=== PATIENT | female | born 1990 | race Two or more races ===

== ENCOUNTER 2018-03-18 10:43 | Inpatient (IN) | payer OTHER ==
[2018-03-18 11:59] VITALS: BMI 37.5
[2018-03-18] MEDS ORDERED: AMPICILLIN - 2 GM in SODIUM CHLORIDE 100 ML IVPB ONE (12:00)
[2018-03-18] MEDS ORDERED: AMPICILLIN SODIUM 2 GM VIAL ONE (12:04)
[2018-03-18] MEDS ORDERED: CITRIC ACID/SODIUM CITRATE 30 ML UNIT-DOSE CUP PO ONE (12:15)
[2018-03-18] MEDS ORDERED: ELECTROLYTE-148 SOLN 1,000 ML IV ONE (12:15)
[2018-03-18 12:16] LABS: BASO % 0.3 % (0-2.0); EOS % 2.9 % (0-4.5); HEMOGLOBIN 10.8 GM/dL (10.7-15.3); LYMPH % 11.2 % (8-40); MCH 28.4 pg (25.7-33.7); MCHC 34.8 g/dl (32.0-36.0); MEAN CELL VOLUME 81.4 fl (80-96); MEAN PLT VOLUME 8.6 fl (7.5-11.1); MONO % 5.6 % (3.8-10.2); PLATELET COUNT 275 K/MM3 (134-434); RBC 3.81 M/mm3 (3.60-5.2); RDW 13.8 % (11.6-15.6); WHITE BLOOD COUNT 11.7 K/mm3 (4.0-10.0)
[2018-03-18] MEDS ORDERED: ELECTROLYTE-148 SOLN 1,000 ML IV SCH (12:30)
[2018-03-18 12:46] LABS: INR 0.99 (0.83-1.09); PROTHROMBIN TIME (PATIENT) 11.7 SEC (9.7-13.0)
[2018-03-18 12:49] LABS: ACTIVATED PTT 27.8 SECONDS (25.2-36.5)
[2018-03-18] MEDS ORDERED: METOCLOPRAMIDE HCL INJECTION 10 MG/2 ML VIAL IVPUSH ONE (13:00)
--- NOTE | 2018-03-18 13:18 | HP ---
Past Medical History - Primary Care Physician PCP:: Miguel De Dios - Admission Chief Complaint: 36 weeks, prom, previous c/s , request of repeat c/s History of Present Illness: 27 yo f 36 weeks,c/o rom since 9 am today, has low abdominal cramps , hx of previous c/s , speculum exam nitrazine positve, cx !ft, breech, fhcat 1 tracing , regular contraction, admitted for repeat c/s, rba discussed History Source: Patient Limitations to Obtaining History: No Limitations - Past Medical History ...: 2 ...Para: 1 ...Term: 1 ...: 0 ...Spon : 0 ...Induced : 0 ...Multiple Gestation: 0 ...LMP: 07/19/17 ... Weeks Gestation by Dates: 34.4 ...EDC by Dates: 04/25/18 ...EDC by Sono: 04/15/18 - Past Surgical History Past Surgical History: Yes: Hx Myomectomy: No Hx Transabdominal Cerclage: No - Smoking History Smoking history: Never smoked Have you smoked in the past 12 months: No - Alcohol/Substance Use Hx Alcohol Use: No - Social History Usual Living Arrangement: Yes: With Spouse History of Recent Travel: No Home Medications - Allergies Allergies/Adverse Reactions: Allergies Allergy/AdvReac Type Severity Reaction Status Date / Time No Known Allergies Allergy Verified 03/18/18 11:23 - Home Medications Home Medications: Ambulatory Orders Vitamins (Sjr) - 1 tab PO DAILY 03/14/18 Ibuprofen [Motrin -] 600 mg PO QID #28 tablet 03/20/18 Review of Systems - Review of Systems Constitutional: reports: No Symptoms Eyes: reports: No Symptoms HENT: reports: No Symptoms Neck: reports: No Symptoms Cardiovascular: reports: No Symptoms Respiratory: reports: No Symptoms Gastrointestinal: reports: No Symptoms Genitourinary: reports: No Symptoms Breasts: reports: No Symptoms Reported Musculoskeletal: reports: No Symptoms Integumentary: reports: No Symptoms Neurological: reports: No Symptoms Endocrine: reports: No Symptoms Hematology/Lymphatic: reports: No Symptoms Psychiatric: reports: No Symptoms Physical Exam - Maternity Vital Signs: Vital Signs Temperature 98.6 F 03/18/18 11:30 Pulse Rate 94 H 03/18/18 11:30 Respiratory Rate 18 03/18/18 11:30 Blood Pressure 104/75 03/18/18 11:30 O2 Sat by Pulse Oximetry (%) Constitutional: Yes: Well Nourished, No Distress, Calm Eyes: Yes: WNL, Conjunctiva Clear, EOM Intact HENT: Yes: WNL, Atraumatic, Normocephalic Neck: Yes: WNL, Supple, Trachea Midline Cardiovascular: Yes: WNL, Regular Rate and Rhythm Breast(s): Yes: WNL - Abdominal Exam/OB Fundal Height: 36 Number of Fetuses: Single Presentation: Breech Contractions: Yes Regularity: Regular Intensity: Moderate Monitor Mode: External Category: I Accelerations: Uniform Decelerations: None - Vaginal Exam/OB Vaginal Bleediing: No Speculum Exam: Yes Dilatation (cm): 1 cm Effacement (%): 50 Amniotic Membrane Status: Ruptured Nitrazine Test: Positive Amniotic Fluid: Yes: Clear Presentation: Randy Breech Station: -3 - Physical Exam Musculoskeletal: Yes: WNL Edema: No Deep Tendon Reflex Grade: Normal +2 Psychiatric: Yes: WNL - Labs Lab Results: CBC, BMP 03/18/18 11:50 Hemorrhage Risk Assessment - Risk Factors Medium Risk Factors: Yes: Prior , uterine surgery,or multiple laparotomies Risk Score: 1 Risk Level: Medium Risk Problem List - Problems (1) with 36 completed weeks gestation Code(s): Z3A.36 - 36 WEEKS GESTATION OF (2) PROM (premature rupture of membranes) Code(s): O42.90 - DRE ROM, 7TH0 BETW RUPT & ONST LABR, UNSP WEEKS OF GEST Qualifiers: PROM onset of labor timing: unspecified duration between rupture of membranes and onset of labor PROM gestational age: -third trimester Qualified Code(s): O42.913 - premature rupture of membranes, unspecified as to length of time between rupture and onset of labor, third trimester (3) Previous section Code(s): Z98.891 - HISTORY OF UTERINE SCAR FROM PREVIOUS SURGERY (4) Breech presentation Code(s): O32.1XX0 - MATERNAL CARE FOR BREECH PRESENTATION, UNSP Qualifiers: Fetus number: single or unspecified fetus Qualified Code(s): O32.1XX0 - Maternal care for breech presentation, not applicable or unspecified Assessment/Plan repeat c/s
[2018-03-18 13:41] LABS: RPR NONREACTIVE (NONREACTIVE)
[2018-03-18 13:46] LABS: ANION GAP 7 MMOL/L (8-16); BLOOD UREA NITROGEN 8 mg/dL (7-18); CALCIUM 8.1 mg/dL (8.5-10.1); CHLORIDE 104 mmol/L (98-107); CO2 25 mmol/L (21-32); CREATININE 0.6 mg/dL (0.55-1.3); GLUCOSE,RANDOM 87 mg/dL (74-106); POTASSIUM 4.3 mmol/L (3.5-5.1); SODIUM 137 mmol/L (136-145)
[2018-03-18] MEDS ORDERED: morphine SULFATE/Preservative Free 0.5 MG/ML (1cc Syringe) ONE (14:44)
[2018-03-18] MEDS ORDERED: OXYTOCIN 10 UNITS/ML VIAL ONE ×2 (15:04→15:43)
[2018-03-18] MEDS ORDERED: ceFAZolin SODIUM 1 GM VIAL ONE (15:04)
[2018-03-18] MEDS ORDERED: IBUPROFEN 800 MG/8 ML IJ IVPB PRN (15:37)
[2018-03-18] MEDS ORDERED: BENZOCAINE 20% 57 GM BOTTLE TP PRN (15:37)
[2018-03-18] MEDS ORDERED: diphenhydrAMINE HCL 25 MG CAPSULE (FP) PO PRN (15:37)
[2018-03-18] MEDS ORDERED: WITCH HAZEL 50% (TUCKS) 40 PAD/JAR PAD TP PRN (15:37)
[2018-03-18] MEDS ORDERED: BENZOCAINE 28 GM HEMORRHOIDAL OINTMENT PR PRN (15:37)
[2018-03-18] MEDS ORDERED: oxyCODONE HCL 5 MG TABLET PO PRN (15:37)
[2018-03-18] MEDS ORDERED: METHYLERGONOVINE MALEATE 0.2 MG/1 ML AMP IM PRN (15:37)
[2018-03-18] MEDS ORDERED: OXYTOCIN 20 UNITS in 0.9% NS 20 UNIT/1,000 ML INFUS.BAG IV SCH (15:45)
[2018-03-18] MEDS ORDERED: DEXTROSE 5%-LACTATED RINGERS 1,000 ML IV SCH (15:45)
--- NOTE | 2018-03-18 15:46 | PN ---
Progress Note (short form) - Note Progress Note: Attended Rpt C/S for this 27yrs old 36weeks LPT, mother with previous C/s presented to DR with ROM at 9.30, AM - no maternal fever, GBS- neg. other labs WNL Mom had UTI urine cult +ve for Enterococcus- mom did not take meds Received 1 dose of Amp. < 4hrs PT del. delivered clear fluid- suctioned/ dried cord 3V 9/9 clinically stable, pink well perfused, not in distress, looks very comfortable in RA Rest of PE exam nl for age. 36weeks LPT Rpt C/s ROM<7hrs IAP- incomplete Mat UTI- no meds Will suggest CBCwith diff at 6hrs of life Follow accuchk at 1hr of life, Feed ad ivette Call PRN noted to have mild tachypnea- pink well perfused in no distress will obs if persists will tr to SCN
[2018-03-18 15:50] LABS: ARTERIAL BLOOD GAS pH 7.26 (7.35-7.45)
[2018-03-18 15:53] LABS: ARTERIAL BLOOD GAS PO2 16.5 mmHg (80-100)
[2018-03-18] MEDS ORDERED: ONDANSETRON 4 MG/2 ML VIAL IVPUSH PRN (15:54)
[2018-03-18 15:55] LABS: ARTERIAL BLOOD GAS PCO2 63.1 mmHg (35-45)
[2018-03-18 15:59] LABS: VENOUS PC02 48.4 mmHg (38-52); VENOUS PH 7.34 (7.32-7.42); VENOUS PO2 24.3 mmHg (28-48)
[2018-03-18] MEDS ORDERED: AMPICILLIN - 1 GM in SODIUM CHLORIDE 100 ML IVPB SCH (16:00)
[2018-03-18] MEDS ORDERED: IBUPROFEN 800 MG/8 ML IJ IVPB ONE (16:52)
[2018-03-18] MEDS ORDERED: OXYTOCIN 20 UNITS in 0.9% NS 20 UNIT/1,000 ML INFUS.BAG IV ONE (17:24)
[2018-03-18] MEDS ORDERED: CEFAZOLIN 1 GM/D5W 1 GM/50 ML BAG IVPB SCH (18:00)
[2018-03-18] MEDS: CEFAZOLIN 1 GM/D5W 1 GM/50 ML BAG IVPB SCH (22:37)
[2018-03-19] MEDS: ACETAMINOPHEN 325 MG TABLET (FP) PO PRN ×4 (04:42→17:12)
[2018-03-19] MEDS: CEFAZOLIN 1 GM/D5W 1 GM/50 ML BAG IVPB SCH (05:43)
[2018-03-19 08:10] LABS: BASO % 0.2 % (0-2.0); EOS % 0.5 % (0-4.5); HEMATOCRIT 27.4 % (32.4-45.2); HEMOGLOBIN 9.4 GM/dL (10.7-15.3); LYMPH % 9.6 % (8-40); MCH 28.1 pg (25.7-33.7); MCHC 34.4 g/dl (32.0-36.0); MEAN CELL VOLUME 81.7 fl (80-96); MEAN PLT VOLUME 8.4 fl (7.5-11.1); MONO % 6.1 % (3.8-10.2); NEUT % 83.6 % (42.8-82.8); PLATELET COUNT 244 K/MM3 (134-434); RBC 3.36 M/mm3 (3.60-5.2); RDW 13.6 % (11.6-15.6); WHITE BLOOD COUNT 13.9 K/mm3 (4.0-10.0)
[2018-03-19] MEDS: SIMETHICONE 80 MG TAB.CHEW (FP) PO PRN ×4 (08:36→20:30)
[2018-03-19] MEDS: IBUPROFEN 600 MG TABLET (FP) PO PRN ×4 (08:37→20:31)
[2018-03-19] MEDS: ENOXAPARIN NA (PORCINE) 40 MG/0.4 ML DISP.SYRIN SQ SCH (09:31)
--- NOTE | 2018-03-19 09:48 | PN ---
Progress Note, Physician Chief Complaint: day 1 s/p c/s - Current Medication List Current Medications: Active Medications Acetaminophen (Tylenol -) 650 mg PO Q4H PRN PRN Reason: PAIN LEVEL 1-5 Last Admin: 03/19/18 08:37 Dose: 650 mg Benzocaine (Americaine 20% [place] -) 1 spray TP PRN PRN PRN Reason: Pain - Topical Benzocaine (Americaine Ointment -) 1 applic TX PRN PRN PRN Reason: Pain - Topical Bisacodyl (Dulcolax Suppository -) 10 mg TX PRN PRN PRN Reason: CONSTIPATION Diphenhydramine HCl (Benadryl -) 25 mg PO Q8H PRN PRN Reason: FOR ITCHING Diphenhydramine HCl (Benadryl Injection -) 25 mg IVPUSH Q4H PRN PRN Reason: Pruritis Last Admin: 03/19/18 04:06 Dose: 25 mg Enoxaparin Sodium (Lovenox -) 40 mg SQ DAILY GARTH Last Admin: 03/19/18 09:31 Dose: 40 mg Parenteral Electrolytes (Plasma-Lyte 148 -) 1,000 mls @ 125 mls/hr IV ASDIR GARTH Dextrose/Lactated Ringer's (D5-Lr -) 1,000 mls @ 125 mls/hr IV ASDIR GARTH Last Admin: 03/19/18 03:56 Dose: 125 mls/hr Ibuprofen (Motrin -) 600 mg PO Q4H PRN PRN Reason: PAIN LEVEL 1 - 3 Last Admin: 03/19/18 08:37 Dose: 600 mg Ibuprofen (Caldolor Injection -) 800 mg IVPB Q6H PRN PRN Reason: PAIN > 5 if PO not effective. Last Admin: 03/18/18 16:50 Dose: 800 mg Methylergonovine Maleate (Methergine Injection -) 0.2 mg IM Q4H PRN PRN Reason: EXCESSIVE BLEEDING Ondansetron HCl (Zofran Injection) 4 mg IVPUSH Q4H PRN PRN Reason: NAUSEA Last Admin: 03/18/18 18:39 Dose: 4 mg Oxycodone HCl (Roxicodone -) 5 mg PO Q4H PRN PRN Reason: PAIN LEVEL 4 - 6 Oxycodone HCl (Roxicodone -) 10 mg PO Q4H PRN PRN Reason: PAIN LEVEL 7 - 10 Senna/Docusate Sodium (Pericolace -) 2 tablet PO HS PRN PRN Reason: CONSTIPATION Simethicone (Mylicon -) 80 mg PO Q4H PRN PRN Reason: GAS Last Admin: 03/19/18 08:36 Dose: 80 mg Witch Penny/Glycerin (Tucks Pads -) 1 pad TP PRN PRN PRN Reason: Pain - Topical - Objective Vital Signs: Vital Signs Temperature 98.2 F 03/19/18 08:47 Pulse Rate 96 H 03/19/18 08:47 Respiratory Rate 20 03/19/18 09:00 Blood Pressure 106/60 03/19/18 08:47 O2 Sat by Pulse Oximetry (%) 100 03/18/18 17:30 Labs: CBC, BMP 03/19/18 07:33 03/18/18 11:50 INR, PTT INR 0.99 (0.83-1.09) 03/18/18 11:50 Assessment/Plan s/p csection under spinal. No headache, back pain, no other issues/ complications from anesthetic.
[2018-03-19] MEDS ORDERED: BISACODYL 10 MG SUPP.RECT PR PRN (15:37)
--- NOTE | 2018-03-19 19:10 | PN ---
Progress Note (short form) - Note Progress Note: pod 1, no c/o ambulating, passing gas CBC, BMP 03/19/18 07:33 03/18/18 11:50 Last Vital Signs Temp Pulse Resp BP Pulse Ox 97.7 F 86 20 96/58 L 100 03/19/18 13:52 03/19/18 13:52 03/19/18 15:00 03/19/18 13:52 03/18/18 17:30 abdomens soft, no distension, no cva incision dry, clean no calf tenderness no excess vagianl bleeding plan ambulate , advance diet pain management Problem List - Problems (1) with 36 completed weeks gestation Code(s): Z3A.36 - 36 WEEKS GESTATION OF (2) PROM (premature rupture of membranes) Code(s): O42.90 - DRE ROM, 7TH0 BETW RUPT & ONST LABR, UNSP WEEKS OF GEST Qualifiers: PROM onset of labor timing: unspecified duration between rupture of membranes and onset of labor PROM gestational age: -third trimester Qualified Code(s): O42.913 - premature rupture of membranes, unspecified as to length of time between rupture and onset of labor, third trimester (3) Previous section Code(s): Z98.891 - HISTORY OF UTERINE SCAR FROM PREVIOUS SURGERY
[2018-03-19] MEDS: SENNOSIDES/DOCUSATE COMBO (SENNA PLUS) TABLET (UD) PO PRN (20:30)
[2018-03-19] MEDS: oxyCODONE HCL 5 MG TABLET PO PRN (20:31)
[2018-03-20] MEDS: SIMETHICONE 80 MG TAB.CHEW (FP) PO PRN ×5 (00:45→21:42)
[2018-03-20] MEDS: IBUPROFEN 600 MG TABLET (FP) PO PRN ×2 (00:45→06:06)
[2018-03-20] MEDS: oxyCODONE HCL 5 MG TABLET PO PRN ×5 (00:46→21:42)
[2018-03-20] MEDS: ENOXAPARIN NA (PORCINE) 40 MG/0.4 ML DISP.SYRIN SQ SCH (10:46)
[2018-03-20] MEDS: ACETAMINOPHEN 325 MG TABLET (FP) PO PRN ×3 (10:47→21:42)
--- NOTE | 2018-03-20 12:10 | OP ---
DATE OF OPERATION: 03/18/2018 PREOPERATIVE DIAGNOSES: at 36 weeks; premature rupture of membranes; labor; previous section; breech presentation. POSTOPERATIVE DIAGNOSES: at 36 weeks; premature rupture of membranes; labor; previous section; breech presentation. PROCEDURE: Repeat low segment transverse section. SURGEON: Miguel De Dios MD MICROMATIC HONE OPERATOR: WILLIAM Gilbert ANESTHESIA: Spinal. ANESTHESIOLOGIST: Isidoro Hair MD ESTIMATED BLOOD LOSS: 500 mL. FINDINGS: Live baby in phuc breech presentation, delivered via breech. Apgars 9, 9. OPERATION: The patient was taken to the operating room and, under adequate spinal anesthesia, the abdomen and perineum were prepped and draped. A Pfannenstiel abdominal skin incision was made over the previous incision. The abdominal wall was cut [id number] until the peritoneum was exposed and incised. Upon entering the abdominal cavity, there were some bladder adhesions to the lower uterine segment, which were lysed and the bladder was pushed down. There were also some peritoneal omental adhesions to the anterior wall of the uterus, which were lysed with Metzenbaum scissors and hemostasis established. Then, a low transverse uterine incision was made and the incision extended laterally. The baby was in the breech presentation, which was delivered via breech without any difficulty. Placenta was delivered manually. Uterine cavity was cleaned out of any tissue. Uterine incision was closed in 2 layers; 1st layer with 0 Biosyn continuous suture, the 2nd layer with 0 Biosyn imbricating the 1st layer. Then, the peritoneum and muscle were brought together with interrupted suture of 0 Biosyn. Then, fascia was closed with 0 Biosyn continuous suture, subcutaneous fat with interrupted suture of 0 Biosyn, and skin was closed with swati. The patient tolerated the procedure well, left the OR in good condition. Cristobal [id number]
--- NOTE | 2018-03-20 13:21 | PN ---
Progress Note (short form) - Note Progress Note: pod 2 s/p repeat c/s , passing gas, had BM CBC, BMP 03/19/18 07:33 03/18/18 11:50 Last Vital Signs Temp Pulse Resp BP Pulse Ox 98.1 F 95 H 20 109/70 100 03/20/18 08:18 03/20/18 08:18 03/20/18 08:18 03/20/18 08:18 03/18/18 17:30 abdomen soft, no distension , BS present incision dry, claen no calf tenderness plan ambulate, cbc in am Problem List - Problems (1) with 36 completed weeks gestation Code(s): Z3A.36 - 36 WEEKS GESTATION OF (2) PROM (premature rupture of membranes) Code(s): O42.90 - DRE ROM, 7TH0 BETW RUPT & ONST LABR, UNSP WEEKS OF GEST Qualifiers: PROM onset of labor timing: unspecified duration between rupture of membranes and onset of labor PROM gestational age: -third trimester Qualified Code(s): O42.913 - premature rupture of membranes, unspecified as to length of time between rupture and onset of labor, third trimester (3) Previous section Code(s): Z98.891 - HISTORY OF UTERINE SCAR FROM PREVIOUS SURGERY (4) Breech presentation Code(s): O32.1XX0 - MATERNAL CARE FOR BREECH PRESENTATION, UNSP Qualifiers: Fetus number: single or unspecified fetus Qualified Code(s): O32.1XX0 - Maternal care for breech presentation, not applicable or unspecified
[2018-03-20] MEDS: SENNOSIDES/DOCUSATE COMBO (SENNA PLUS) TABLET (UD) PO PRN (22:47)
[2018-03-21] MEDS: ACETAMINOPHEN 325 MG TABLET (FP) PO PRN ×4 (03:51→19:42)
[2018-03-21] MEDS: oxyCODONE HCL 5 MG TABLET PO PRN ×2 (03:51→07:34)
[2018-03-21] MEDS: SIMETHICONE 80 MG TAB.CHEW (FP) PO PRN ×4 (03:51→19:42)
[2018-03-21 07:32] LABS: BASO % 0.5 % (0-2.0); EOS % 5.1 % (0-4.5); HEMATOCRIT 27.7 % (32.4-45.2); HEMOGLOBIN 8.7 GM/dL (10.7-15.3); MCH 26.2 pg (25.7-33.7); MCHC 31.6 g/dl (32.0-36.0); MEAN CELL VOLUME 82.8 fl (80-96); MEAN PLT VOLUME 8.4 fl (7.5-11.1); MONO % 6.4 % (3.8-10.2); PLATELET COUNT 234 K/MM3 (134-434); RBC 3.34 M/mm3 (3.60-5.2); RDW 13.8 % (11.6-15.6); WHITE BLOOD COUNT 11.9 K/mm3 (4.0-10.0)
--- NOTE | 2018-03-21 08:03 | PN ---
Progress Note (short form) - Note Progress Note: pod 3 doing well, ambulating CBC, BMP 03/21/18 06:15 03/18/18 11:50 Last Vital Signs Temp Pulse Resp BP Pulse Ox 98.6 F 98 H 18 115/72 100 03/20/18 21:04 03/20/18 21:04 03/20/18 21:04 03/20/18 21:04 03/18/18 17:30 abdomen soft . no distension, no cva incision dry, clean no calf tenderness no active vaginal bleeding plan for d/c home in am mild anemia, asymptomatic iron , vit Problem List - Problems (1) with 36 completed weeks gestation Code(s): Z3A.36 - 36 WEEKS GESTATION OF (2) PROM (premature rupture of membranes) Code(s): O42.90 - DRE ROM, 7TH0 BETW RUPT & ONST LABR, UNSP WEEKS OF GEST Qualifiers: PROM onset of labor timing: unspecified duration between rupture of membranes and onset of labor PROM gestational age: -third trimester Qualified Code(s): O42.913 - premature rupture of membranes, unspecified as to length of time between rupture and onset of labor, third trimester (3) Previous section Code(s): Z98.891 - HISTORY OF UTERINE SCAR FROM PREVIOUS SURGERY (4) Breech presentation Code(s): O32.1XX0 - MATERNAL CARE FOR BREECH PRESENTATION, UNSP Qualifiers: Fetus number: single or unspecified fetus Qualified Code(s): O32.1XX0 - Maternal care for breech presentation, not applicable or unspecified
[2018-03-21] MEDS: ENOXAPARIN NA (PORCINE) 40 MG/0.4 ML DISP.SYRIN SQ SCH (10:21)
[2018-03-21] MEDS: IBUPROFEN 600 MG TABLET (FP) PO PRN ×2 (12:49→19:42)
[2018-03-21] MEDS: SENNOSIDES/DOCUSATE COMBO (SENNA PLUS) TABLET (UD) PO PRN (19:41)
[2018-03-22] MEDS: ACETAMINOPHEN 325 MG TABLET (FP) PO PRN ×3 (00:53→09:22)
[2018-03-22] MEDS: IBUPROFEN 600 MG TABLET (FP) PO PRN ×3 (00:53→09:21)
[2018-03-22] MEDS: SIMETHICONE 80 MG TAB.CHEW (FP) PO PRN ×2 (00:53→09:23)
[2018-03-22 08:04] VITALS: BP 111/69; PULSE 92; TEMP 98.8
--- NOTE | 2018-03-22 08:21 | DS ---
Physical Examination Vital Signs: Vital Signs Temperature 98.8 F 03/22/18 07:20 Pulse Rate 92 H 03/22/18 07:20 Respiratory Rate 20 03/22/18 07:20 Blood Pressure 111/69 03/22/18 07:20 O2 Sat by Pulse Oximetry (%) 100 03/18/18 17:30 Constitutional: Yes: Well Nourished, No Distress, Calm Eyes: Yes: WNL, Conjunctiva Clear, EOM Intact HENT: Yes: WNL, Atraumatic, Normocephalic Neck: Yes: WNL, Supple, Trachea Midline Cardiovascular: Yes: WNL, Regular Rate and Rhythm Respiratory: Yes: WNL, Regular, CTA Bilaterally Gastrointestinal: Yes: WNL, Normal Bowel Sounds Musculoskeletal: Yes: WNL Extremities: Yes: WNL Edema: No Integumentary: Yes: WNL Neurological: Yes: WNL, Alert, Oriented ...Motor Strength: WNL Psychiatric: Yes: WNL Labs: CBC, BMP 03/21/18 06:15 03/18/18 11:50 Discharge Summary Reason For Visit: REPEAT Current Active Problems Breech presentation (Acute) PROM (premature rupture of membranes) (Acute) with 36 completed weeks gestation (Acute) Previous section (Acute) Procedures: Principal: [facility] Hospital Course: Patient presented in labor and opted for a repeat delivery She met all post operative milestones and was discharged home on POD#4 Condition: Stable - Instructions Diet, Activity, Other Instructions: regular diet, if fever pain, heavy vaginal bleeding call MD follow up [facility] care1 we Referrals: Miguel De Dios MD [Staff Physician] - Disposition: HOME - Home Medications Comprehensive Discharge Medication List: Ambulatory Orders Vitamins (Sjr) - 1 tab PO DAILY 03/14/18 Ibuprofen [Motrin -] 600 mg PO QID #28 tablet 03/20/18
[2018-03-22] MEDS: ENOXAPARIN NA (PORCINE) 40 MG/0.4 ML DISP.SYRIN SQ SCH (09:21)
--- NOTE | 2018-03-23 14:04 | PATH ---
Surgical Pathology Report Patient Name: SILVA BYERS Med. Rec. #: [id number] /Age/Gender: 1990 (Age: 27) / F Account: [id number] Location: [facility] OBS/COMMERCIAL DECORATOR Taken: 03/18/2018 Received: 03/21/2018 Reported: 03/23/2018 Physicians: Miguel De Dios M.D. Specimen(s) Received PLACENTA Clinical History , 36 weeks, PPROM Final Diagnosis PLACENTA, SECTION: 371 G THIRD TRIMESTER PLACENTA WITH TRIVASCULAR UMBILICAL CORD AND UNREMARKABLE PLACENTAL MEMBRANES. Electronically Signed Keren Bustos M.D. Gross Description The specimen is received fresh labeled placenta and is a 371 gram, 19.0 x 15.0 x 1.7 cm. placenta with attached membranes and umbilical cord. The attached membranes are blunt, translucent with focal opacities and insert marginally. The umbilical cord measures 17.5 cm. in length and averages 1.1 cm. in diameter. The cord inserts at the margin. No true knots or strictures are identified. Cut surface of the umbilical cord reveals 3 vessels. The surface is juarez-blue with minimal fibrin deposition and appropriate caliber vessels. The maternal surface is red-brown with focal defects. Sectioning reveals red-brown, spongy parenchyma. No lesions are identified. Fountain Manager sections are submitted in three cassettes as follows: 1- membrane rolls and umbilical cord; 2-3- full thickness sections of placenta. /03/21/201803/21/2018
== END 2018-03-22 14:15 | disposition home or self-care (01) | DRG 540 ==
LOC: JDEL 10:43 → JLDR 11:10 → J3W 17:35
PROVIDERS: ADMIT Obstetrics & Gynecology; ATTEND Obstetrics & Gynecology
PROC: 10D00Z1 Extraction of Products of Conception, Low, Open Approach (ICD-10-PCS; principal; 2018-03-18)
DX: O32.1XX0 Maternal care for breech presentation, not applicable or unspecified (principal); O34.211 Maternal care for low transverse scar from previous cesarean delivery; N85.8 Other specified noninflammatory disorders of uterus; O60.14X0 Preterm labor third trimester with preterm delivery third trimester, not applicable or unspecified; Z3A.36 36 weeks gestation of pregnancy; Z37.0 Single live birth
CPT/HCPCS: 36415; 36600; 59025; 80048; 82803; 85025; 85610; 85730; 86593; 86850; 86900; 86901; 87389; 88307-TC